=== PATIENT | female | born 1990 | race Caucasian/White ===

== ENCOUNTER 2023-05-20 16:58 | Emergency (ER) | payer OTHER, SELFPAY ==
[2023-05-20 17:02] VITALS: BP 139/82; PULSE 56; RESP 16; TEMP 36.2; O2SAT 99; BMI 88.3
--- NOTE | 2023-05-20 17:16 | ED.DENTAL ---
HPI - Dental/Oral General Chief complaint: Dental/Oral/Mouth Injury/Pain Stated complaint: Infected tooth Time Seen by Provider: 05/20/23 17:01 History of Present Illness HPI Narrative: This 33-year-old female comes in with dental pain in the upper left role of teeth. She has a bad tooth and needs to have a dentist extract this stub of a tooth that is causing her trouble. She states that she needs a dental implant. She reports that she has noticed some pus coming from this area and has lots of pain. Related Data Previous Rx's Medication Instructions Recorded clindamycin HCl 150 mg capsule 150 mg PO TID #15 caps 05/20/23 ketorolac 10 mg tablet 10 mg PO TID 5 days #15 tabs 05/20/23 Allergies Allergy/AdvReac Type Severity Reaction Status Date / Time Penicillins Allergy Severe Anaphylaxis Verified 05/20/23 17:07 Review of Systems Status of ROS: Reports: 10 or more systems reviewed and unremarkable except as noted in History and below Narrative: Constitutional: No fevers, no weight gain or loss. Eyes: No discharge. No vision changes. HENT: No congestion, no sore throat. Left upper dental pain radiating to her left ear. Cardiovascular: No chest pain, no palpitations. Respiratory: No shortness of breath, no wheezes, no cough. Gastrointestinal: No abdominal pain, no vomiting, no diarrhea. Genitourinary: No dysuria, no hematuria. Musculoskeletal: Normal range of motion. Skin: No rashes, no pruritis. Neurological: No dizziness, weakness, sensory change, speech change. Endo/Heme/Allergies: No bruising or bleeding. No polydipsia. Pysch: no suicidality, no anxiety, no insomnia. All other systems reviewed and are negative. Exam Narrative: Exam Narrative: Constitutional: Well-developed, well-nourished, no acute distress. HEENT: Normocephalic, atraumatic. Poor dentition with numerous dental caries. Some increased erythema but no some obvious sign of abscess at the stub of a tooth in her left upper row. Neck: Normal range of motion. Nontender. Supple. Heart: Intact distal pulses. Lungs: No chest discomfort. No wheezes, rhonchi, or rales. Abdomen: Nontender. Back: Normal range of motion. Extremities: Normal range of motion. No injury. Skin: Intact. No rash. Warm. No erythema or pallor. Neurologic: No altered sensation. No weakness. Alert and oriented. Psychiatric: No suicidality. No anxiety or depression. No insomnia. Nursing notes and vitals signs are reviewed. Const: Vital Signs, click to edit/add: Vital Signs - 24 hr 05/20/23 17:02 Temperature 97.1 F L Pulse Rate [Pulse Oximeter] 56 L Respiratory Rate 16 Blood Pressure [Ri ght Upper Arm] 139/82 Pulse Oximetry 99 Oxygen Delivery Me thod Room Air Course Vital Signs Vital signs: Initial Vital Signs Temperature 97.1 F L 05/20/23 17:02 Temperature Source Temporal Artery Scan 05/20/23 17:02 Pulse Rate 56 L 05/20/23 17:02 Respiratory Rate 16 05/20/23 17:02 Blood Pressure 139/82 05/20/23 17:02 Blood Pressure Mean 101 05/20/23 17:02 Blood Pressure Position Sitting 05/20/23 17:02 Pulse Oximetry 99 05/20/23 17:02 Oxygen Delivery Method Room Air 05/20/23 17:02 Vital Signs Temperature 97.1 F L 05/20/23 17:02 Pulse Rate 56 L 05/20/23 17:02 Respiratory Rate 16 05/20/23 17:02 Blood Pressure 139/82 05/20/23 17:02 Pulse Oximetry 99 05/20/23 17:02 Oxygen Delivery Method Room Air 05/20/23 17:02 Temperature 97.1 F L 05/20/23 17:02 Pulse Rate 56 L 05/20/23 17:02 Respiratory Rate 16 05/20/23 17:02 Blood Pressure 139/82 05/20/23 17:02 Pulse Oximetry 99 05/20/23 17:02 Oxygen Delivery Method Room Air 05/20/23 17:02 MDM - Dental/Oral MDM Narrative Medical decision making narrative: This patient has increased pain and report of purulence from a tooth in her left upper mouth. She knows that she needs to go see a dentist but comes in here stating that she needs something to help get this started and the dentist may not see her when there is active infection. The patient does have an allergy to penicillin so I did prescribe clindamycin. She also received prescription for Toradol. Discharge Plan Discharge Clinical Impression: Dental abscess, Fracture of tooth Patient Disposition: Home, Self-Care Condition: Stable Instructions: Dental Abscess (ED) Additional Instructions: Take medication as prescribed. Follow-up with dentist as soon as possible. Prescriptions: New clindamycin HCl 150 mg capsule 150 mg PO TID Qty: 15 0RF ketorolac 10 mg tablet 10 mg PO TID 5 Days Qty: 15 0RF Stand Alone Forms: MyHealth Info Instructions
== END 2023-05-20 17:27 | disposition home or self-care (01) ==
LOC: ED 17:26
PROVIDERS: Emergency Provider Emergency Medicine Emergency Medical Services
DX: K04.7 Periapical abscess without sinus (principal); K08.89 Other specified disorders of teeth and supporting structures
CPT/HCPCS: 99283; 99284